=== PATIENT | female | born 1960 | race Caucasian/White ===

== ENCOUNTER 2017-03-07 13:02 | Day surgery (SDC) | payer OTHER ==
[2017-03-07] VITALS (21 sets, daily range): BP systolic 105–145; BP diastolic 56–94; PULSE 64–102; RESP 12–20; Ht 154.9 cm; Wt 66.0 kg
[~2017-03-07] VITALS: Ht 154.9 cm; Wt 66.0 kg
[~2017-03-07 13:02] MED LIST: ASPI-535 PO; BENAZEPRIL PO
[2017-03-07] MEDS ORDERED: CEFAZOLIN 2 GM/50 ML (PMX) 50 ML IVPB ONE (13:30)
[2017-03-07] MEDS ORDERED: SOD CHLORIDE 0.9% 1,000 ML IV SCH (13:30)
[2017-03-07] MEDS ORDERED: BUPIVACAINE 0.25% (MPF) 30 ML INJ ONE ×2 (13:45→14:57)
[2017-03-07] MEDS ORDERED: SIMV5TAB50 PO (13:45)
[2017-03-07] MEDS ORDERED: METF500T4 PO (13:46)
[2017-03-07] MEDS ORDERED: BENA5TAB2 PO (13:46)
[2017-03-07] MEDS ORDERED: FENTAnyl 50 MCG/ML VIAL IV PRN ×3 (14:30)
[2017-03-07] MEDS ORDERED: MIDAZOLAM 1 MG/ML 2 ML INJ IV PRN (14:30)
[2017-03-07] MEDS ORDERED: MEPERIDINE 25 MG INJ IV PRN (14:30)
[2017-03-07] MEDS ORDERED: morphine (1 MG/ML) 10ML SYRINGE IV PRN ×3 (14:30)
[2017-03-07] MEDS ORDERED: ONDANSETRON 4 MG INJ IV PRN (14:30)
[2017-03-07] MEDS ORDERED: METOCLOPRAMIDE 10 MG INJ IV PRN (14:30)
[2017-03-07] MEDS ORDERED: DIPHENHYDRAMINE 50 MG INJ IV PRN (14:30)
[2017-03-07] MEDS ORDERED: OXYCODONE/ACETAMINOPHEN (5/325) TAB PO PRN ×2 (14:30)
--- NOTE | 2017-03-07 14:36 | RADRPT ---
PROCEDURE: XR Chest. CLINICAL INDICATION: Preoperative TECHNIQUE: Single frontal chest x-ray. COMPARISON: None. FINDINGS: The lungs are clear of acute infiltrates, edema, effusions, or masses.. The cardiomediastinal silho uette is unremarkable. The osseous structures are intact. IMPRESSION: No acute cardiopulmonary disease. RPTAT: EE .Brigido Gtz MD, MD Date Time Electronically viewed and signed by .Brigido Gtz MD, on 03/07/2017 14:36 .L/
[2017-03-07] MEDS ORDERED: PROPOFOL 20 ML ONE (14:37)
[2017-03-07] MEDS ORDERED: CEFAZOLIN 1 GM INJ ONE (14:37)
[2017-03-07] MEDS ORDERED: LIDOCAINE 2% (SDV) 5 ML INJ ONE (14:37)
[2017-03-07] MEDS ORDERED: MEPERIDINE 100 MG INJ ONE (14:37)
[2017-03-07] MEDS ORDERED: METOCLOPRAMIDE 10 MG INJ ONE (14:38)
[2017-03-07] MEDS ORDERED: ONDANSETRON 4 MG INJ ONE (14:38)
--- NOTE | 2017-03-07 15:14 | OPR ---
Date/Time of Note Date/Time of Note DATE: 03/07/17 TIME: 15:11 Operative Report Procedure Date: Mar 07, 2017 Preoperative Diagnosis back lipoma Postoperative Diagnosis same Operation Performed 1. excision of back tumor 6 cm incision 4 cm mass 2. localized adjacent tissue transfer with the use of skin flaps 12 sq cm defect 3. therapeutic injection of subcutaneous marcaine cpt code 99328 Surgeon: Siri GONZALES Anesthesia: general Specimens back mass 4 cm Indications This is a 56-year-old female with a right lower back mass. She required surgical excision risks alternatives benefits and percent were discussed the patient. Patient expresses understanding and consents to the operation. Procedure Description Patient is taken to the OR and prepped and draped in usual sterile fashion surgical timeout was performed IV antibiotics given per incision is made over the back mass in the right lower back transversely with a 15 blade. Dissection cautery was carried down through the subcutaneous tissues into the deep tissues. The mass is identified and resected en bloc. There is good hemostasis. Due to tissue defect localized adjacent to his transfer with these of skin flaps was performed multilayer closure with interrupted 3-0 Vicryl and skin kae. Therapeutic subcutaneous injection of Marcaine was placed. Dry dressings were applied. Siri GONZALES Mar 07, 2017 15:14
[2017-03-07] MEDS ORDERED: HYDROCODONE/APAP (5/325) TAB PO ONE (15:30)
--- NOTE | 2017-03-07 15:30 | RADRPT ---
Vent Rate: 67 bpm RR Interval: 0 msec [place] Interval: 176 msec QRS Duration: 90 msec QT Interval: 406 msec QTC Interval: 429 msec P-R-T [place]: 39 - 37 - 58 degrees Normal sinus rhythm Normal ECG Electronically Signed By: Dontrell Rodas [id number]
[2017-03-07 15:58] LABS: ADD SCAN DIFF NO
[2017-03-07 16:02] LABS: BASOPHIL # 0.1 10^3/ul (0.0-0.1); BASOPHILS % 0.8 % (0.0-2.0); HEMOGLOBIN 12.6 g/dl (12.0-16.0); LYMPHOCYTES % 33.2 % (15.0-51.0); PLATELET COUNT 322 10^3/UL (140-415); RED CELL DISTRIBUTION WIDTH 13.1 % (11.5-14.5)
[2017-03-07 16:05] LABS: INR 0.89; PT RATIO 0.9
[2017-03-07 16:06] LABS: PARTIAL THROMBOPLASTIN TIME 28.7 Sec (25.0-35.0)
[2017-03-07 16:08] LABS: EOSINOPHILS # 1.3 10^3/ul (0.0-0.5); EOSINOPHILS % 21.5 % (0.0-7.0); HEMATOCRIT 39.1 % (37.0-47.0); LYMPHOCYTES # 2.1 10^3/ul (0.8-2.9); MEAN CORPUSCULAR HEMOGLOBIN 29.8 pg (29.0-33.0); MEAN CORPUSCULAR HGB CONC 32.2 g/dl (32.0-37.0); MEAN CORPUSCULAR VOLUME 92.4 fl (82.0-101.0); MEAN PLATELET VOLUME 10.5 fl (7.4-10.4); MONOCYTE # 0.4 10^3/ul (0.3-0.9); MONOCYTES % 6.1 % (0.0-11.0); NEUTROPHIL # 2.4 10^3/ul (1.6-7.5); NEUTROPHILS % 38.2 % (39.0-77.0); RED BLOOD COUNT 4.23 10^6/ul (4.20-5.40); WHITE BLOOD COUNT 6.2 10^3/ul (4.8-10.8)
[2017-03-07 16:26] LABS: ALBUMIN 4.3 g/dl (3.3-4.9); ALBUMIN/GLOBULIN RATIO 1.1; BILIRUBIN,INDIRECT 0.1 mg/dl (0-1.1); BILIRUBIN,TOTAL 0.1 mg/dl (0.2-1.3); TOTAL PROTEIN 8.2 g/dl (6.1-8.1)
[2017-03-07 16:29] LABS: CALCIUM 9.9 mg/dl (8.4-10.2); CREATININE 0.74 mg/dl (0.44-1.00); POTASSIUM 3.9 mmol/L (3.5-5.1)
== END 2017-03-07 17:30 | disposition home or self-care (01) ==
LOC: SDS 13:02
PROVIDERS: ATTEND Surgery
DX: R22.2 Localized swelling, mass and lump, trunk (principal); D17.1 Benign lipomatous neoplasm of skin and subcutaneous tissue of trunk; I10 Essential (primary) hypertension; E11.9 Type 2 diabetes mellitus without complications; E78.5 Hyperlipidemia, unspecified
CPT/HCPCS: 14001; 71010; 80053; 82962; 85025; 85610; 85730; 88307; 93005; J0690; J2175; J2405; J2765; Z7512; Z7610